=== PATIENT | male | born 1945 | race Caucasian/White ===

== ENCOUNTER 2017-04-02 09:55 | Outpatient (CLI) | payer MEDICARE, OTHER ==
[~2017-04-02] VITALS: Ht 172.7 cm; Wt 75.3 kg
[~2017-04-02 09:55] MED LIST: TRAMADOL HCL50 MG ORAL
[2017-04-02 10:15] VITALS: BP 118/76
[2017-04-02] MEDS ORDERED: BP MED PO (10:17)
--- NOTE | 2017-04-02 10:59 | GI Initial Consult Note ---
Stephanie Frias N.P. 04/02/17 1059: History of Present Illness General Date patient seen: Apr 02, 2017 Time patient seen: 10:49 Referring physician: Reason for Consultation: SCREENING COLONOSCOPY Present Illness HPI 71 year old male here to schedule routine EGD/colonoscopy. He presents today with no GI symptoms. Denies any weight loss or changes in dietary habits. Home Meds Reported Medications [Bp Med ] No Conflict Check, PO DAILY 04/02/17 Discontinued Scripts Tramadol Hcl* (ULTRAM*) 50 Mg Tablet, 50 MG ORAL Q6H Y for For Pain, #15 TAB 0 Refills Prov:ALISA TIRADO 08/07/15 Med list reviewed/reconciled: Yes Allergies: Coded Allergies: No Known Allergies (Unverified , 08/07/15) Patient History History Provided By: Patient PMH Narrative HTN Past Surgical History: none Pertinent Family History: HTN Social History: Denies: smoking, alcohol use, drug use, other Review of Systems All Other Systems: negative except mentioned in HPI Physical Exam Vital Signs Date Time Temp Pulse Resp B/P (MAP) Pulse Ox O2 Delivery O2 Flow Rate FiO2 04/02/17 10:15 97.5 45 16 118/76 98 Sp02 EP Interpretation: reviewed General Appearance: well appearing, no apparent distress, alert Head: normocephalic EENT: PERRL/EOMI, normal ENT inspection Neck: full range of motion, supple Respiratory: normal breath sounds, no respiratory distress Cardiovascular: normal rate Gastrointestinal: normal inspection, non tender, soft, normal bowel sounds Rectal: deferred Genitourinary: no CVA tenderness Musculoskeletal: normal inspection, back normal Neurologic: normal inspection, alert, oriented x3, responsive Psychiatric: normal inspection, judgement/insight normal, memory normal Skin: normal inspection, normal color, no rash, warm/dry, palpation normal Lymphatic: normal inspection GI: Plan Problems: (1) HTN (hypertension) (2) Colonoscopy planned (3) Bradycardia Plan EGD/colonoscopy schedule 04/05/17. - CLD & prep instructions given to patient. bradycardia >> pt states he exercises and lifts weights daily Seen with Dr. Irvin. BENJAMIN IRVIN 04/03/17 1205: History of Present Illness Present Illness Home Meds Reported Medications [Bp Med ] No Conflict Check, PO DAILY 04/02/17 Discontinued Scripts Tramadol Hcl* (ULTRAM*) 50 Mg Tablet, 50 MG ORAL Q6H Y for For Pain, #15 TAB 0 Refills Prov:ALISA TIRADO 08/07/15 Allergies: Coded Allergies: No Known Allergies (Unverified , 08/07/15) GI: Plan Plan The patient was seen and examined at bedside and all new and available data was reviewed in the patients chart. I agree with the above findings, impression and plan. (Patient seen earlier today. Signature stamp does not reflect patient encounter time.). -Mary Alvarez MDh Arias Levy Apr 02, 2017 10:59 BENJAMIN IRVIN Apr 03, 2017 12:05
== END 2017-04-02 10:45 | disposition home or self-care (01) ==
LOC: PAN 09:55
DX: I10 Essential (primary) hypertension (principal); R00.1 Bradycardia, unspecified
CPT/HCPCS: 99201

== ENCOUNTER 2017-04-05 06:23 | Day surgery (SDC) | payer MEDICARE, OTHER ==
[2017-04-05] VITALS (11 sets, daily range): BP systolic 110–133; BP diastolic 73–86
[~2017-04-05] VITALS: Ht 172.7 cm; Wt 74.8 kg
[~2017-04-05 06:23] MED LIST changes: +BP MED PO
--- NOTE | 2017-04-05 06:47 | Anethesia Preoperative Eval ---
Anesthesia Pre-op PMH/ROS General Date of Evaluation: Apr 05, 2017 Time of Evaluation: 06:42 Anesthesiologist: danielle ASA Score: ASA 2 Mallampati Score Class I : Soft palate, uvula, fauces, pillars visible Class II: Soft palate, uvula, fauces visible Class III: Soft palate, base of uvula visible Class IV: Only hard plate visible Mallampati Classification: Class II Surgeon: lilliana Diagnosis: gerd, colonoscopy Surgical Procedure: egd/colonoscopy Anesthesia History: none Social History: smoking - nonsmoker Family History: no anesthesia problems Allergies: Coded Allergies: No Known Allergies (Unverified , 08/07/15) Medications: see eMAR Past Medical History Cardiovascular: Reports: HTN, arrhythmia - bradycardia Anesthesia Pre-op Phys. Exam Physician Exam Last Vital Signs Date Time Temp Pulse Resp B/P (MAP) Pulse Ox O2 Delivery O2 Flow Rate FiO2 04/05/17 06:52 97.0 52 20 110/75 97 Room Air Constitutional: NAD Neurologic: CN 2-12 intact Cardiovascular: RRR Respiratory: CTA Gastrointestinal: S/NT/ND Airway Exam Mallampati Score: Class II MO: full Neck: supple TMD: 2fb ROM: full Teeth: intact Anesthesia Pre-op A/P Labs hemolyzed sample. Labs Test 04/05/17 06:50 White Blood Count 5.7 K/UL (4.8-10.8) Red Blood Count 4.01 M/UL (4.70-6.10) Hemoglobin 13.1 G/DL (14.2-18.0) Hematocrit 39.9 % (42.0-52.0) Mean Corpuscular Volume 100 FL (80-99) Mean Corpuscular Hemoglobin 32.7 PG (27.0-31.0) Mean Corpuscular Hemoglobin Concent 32.9 G/DL (32.0-36.0) Red Cell Distribution Width 11.8 % (11.6-14.8) Platelet Count 165 K/UL (150-450) Mean Platelet Volume 7.6 FL (6.5-10.1) Neutrophils (%) (Auto) 55.0 % (45.0-75.0) Lymphocytes (%) (Auto) 31.0 % (20.0-45.0) Monocytes (%) (Auto) 8.5 % (1.0-10.0) Eosinophils (%) (Auto) 4.2 % (0.0-3.0) Basophils (%) (Auto) 1.2 % (0.0-2.0) Sodium Level 142 mEQ/L (135-145) Potassium Level 6.1 mEQ/L (3.4-4.9) Chloride Level 106 mEQ/L (98-107) Carbon Dioxide Level 24 mEQ/L (20-30) Anion Gap 12 (5-15) Blood Urea Nitrogen 19 mg/dL (7-23) Creatinine 1.4 mg/dL (0.7-1.2) Estimat Glomerular Filtration Rate mL/min (>60) Glucose Level 94 mg/dL (74-106) Calcium Level 9.5 mg/dL (8.6-10.2) Studies Pre-op Studies: EKG - sinus bradycardia Risk Assessment & Plan Assessment: asa2 Plan: mac Status Change Before Surgery: No Pre-Antibiotics Drug: VALENTIN Hays Apr 05, 2017 06:47
[2017-04-05 07:09] LABS: BASOPHILS % (AUTO) 1.2 % (0.0-2.0); EOSINOPHILS % (AUTO) 4.2 % (0.0-3.0); MEAN CORPUSCULAR HEMOGLOBIN 32.7 PG (27.0-31.0); MEAN CORPUSCULAR HGB CONC 32.9 G/DL (32.0-36.0); MEAN CORPUSCULAR VOLUME 100 FL (80-99); MEAN PLATELET VOLUME 7.6 FL (6.5-10.1); MONOCYTES % (AUTO) 8.5 % (1.0-10.0); PLATELET COUNT 165 K/UL (150-450); RED BLOOD COUNT 4.01 M/UL (4.70-6.10); RED CELL DISTRIBUTION WIDTH 11.8 % (11.6-14.8); WHITE BLOOD COUNT 5.7 K/UL (4.8-10.8)
[2017-04-05 07:21] LABS: ANION GAP 12 (5-15); CALCIUM 9.5 mg/dL (8.6-10.2); CARBON DIOXIDE 24 mEQ/L (20-30); CHLORIDE 106 mEQ/L (98-107); CREATININE 1.4 mg/dL (0.7-1.2); HEMOLYSIS 227; SODIUM 142 mEQ/L (135-145)
[2017-04-05 07:22] LABS: POTASSIUM 6.1 mEQ/L (3.4-4.9)
[2017-04-05] MEDS ORDERED: Lidocaine 1% MPF 10mg/ml 5ml ONE (07:30)
[2017-04-05] MEDS ORDERED: Propofol 200mg/20ml IV ONE (07:30)
--- NOTE | 2017-04-05 07:45 | Short Stay Surgery H&P ---
History of Present Illness History of Present Illness Chief Complaint see recent consult HPI Tanmay Rush is a 71 year old male who was admitted on for Gerd,Colon Screening Patient History Allergies: Coded Allergies: No Known Allergies (Unverified , 08/07/15) PAST MEDICAL HISTORY: Past Surgeries: Social History: Medication History Scheduled [Bp Med ], PO DAILY, (Reported) Discontinued Medications Tramadol Hcl* (Ultram*), 50 MG ORAL Q6H PRN for For Pain Discontinued Reason: MD discontinued med Physical Exam Vital Signs Last Vital Signs Date Time Temp Pulse Resp B/P (MAP) Pulse Ox O2 Delivery O2 Flow Rate FiO2 04/05/17 06:52 97.0 52 20 110/75 97 Room Air Labs Laboratory Tests Test 04/05/17 06:50 White Blood Count 5.7 K/UL (4.8-10.8) Red Blood Count 4.01 M/UL (4.70-6.10) L Hemoglobin 13.1 G/DL (14.2-18.0) L Hematocrit 39.9 % (42.0-52.0) L Mean Corpuscular Volume 100 FL (80-99) H Mean Corpuscular Hemoglobin 32.7 PG (27.0-31.0) H Mean Corpuscular Hemoglobin Concent 32.9 G/DL (32.0-36.0) Red Cell Distribution Width 11.8 % (11.6-14.8) Platelet Count 165 K/UL (150-450) Mean Platelet Volume 7.6 FL (6.5-10.1) Neutrophils (%) (Auto) 55.0 % (45.0-75.0) Lymphocytes (%) (Auto) 31.0 % (20.0-45.0) Monocytes (%) (Auto) 8.5 % (1.0-10.0) Eosinophils (%) (Auto) 4.2 % (0.0-3.0) H Basophils (%) (Auto) 1.2 % (0.0-2.0) Sodium Level 142 mEQ/L (135-145) Potassium Level 6.1 mEQ/L (3.4-4.9) *H Chloride Level 106 mEQ/L (98-107) Carbon Dioxide Level 24 mEQ/L (20-30) Anion Gap 12 (5-15) Blood Urea Nitrogen 19 mg/dL (7-23) Creatinine 1.4 mg/dL (0.7-1.2) H Estimat Glomerular Filtration Rate mL/min (>60) Glucose Level 94 mg/dL (74-106) Calcium Level 9.5 mg/dL (8.6-10.2) Plan Attestation Are the patient's medical conditions optimized for surgery? BENJAMIN IRVIN Apr 05, 2017 07:45
--- NOTE | 2017-04-05 07:45 | Pre-Procedure Note/Attestation ---
Pre-Procedure Note/Attestation Complete Prior to Procedure Planned Procedure: not applicable Procedure Narrative: EGD and colonoscopy Indications for Procedure Pre-Operative Diagnosis: screening colon ,GERD Attestation I attest that I discussed the nature of the procedure; its benefits; risks and complications; and alternatives (and the risks and benefits of such alternatives ), prior to the procedure, with the patient (or the patient's legal independent sales representative). I attest that, if there was a reasonable possibility of needing a blood transfusion, the patient (or the patient's legal independent sales representative) was given the [facility] standardized written summary, pursuant to the Justino Lynda Blood Safety Act ([place] Health and Safety Code # 1645, as amended). I attest that I re-evaluated the patient just prior to the surgery and that there has been no change in the patient's H&P, except as documented below: BENJAMIN IRVIN Apr 05, 2017 07:45
[2017-04-05] MEDS ORDERED: Hydromorphone 0.5mg/0.5ml inj IVP PRN (08:15)
[2017-04-05] MEDS ORDERED: Atropine Inj 1mg/10ml Syr IV PRN (08:15)
[2017-04-05] MEDS ORDERED: Midazolam 2mg/2ml Inj IVP PRN (08:15)
[2017-04-05] MEDS ORDERED: DiphenhydrAMINE 50mg/ml Inj IVP PRN (08:15)
--- NOTE | 2017-04-05 08:21 | Endoscopy Procedure Note ---
Endoscopy Procedure Note Indication for Procedure: screening colon, GERD Procedures Performed: EGD, colonoscopy Operative Findings/Diagnosis: 3 colon polyps, gastritis Specimen: yes Pt Tolerated Procedure Well: Yes Estimated Blood Loss: none Anesthesiologist: danielle Anesthesia: MAC Implant(s) used?: No 50 yrs or older w/o bx or poly: No 10yrs. F/U not recommended: Yes If not recommended, why?: Above average risk 10 yrs. F/U needed: Yes 18 years or older w/prev. colo: No BENJAMIN IRVIN Apr 05, 2017 08:21
--- NOTE | 2017-04-05 08:43 | Immediate Post-Op Evaluation ---
Immediate Post-Op Evalulation Immediate Post-Op Evalulation Procedure: egd/colonocopy Date of Evaluation: Apr 05, 2017 Time of Evaluation: 08:37 IV Fluids: 400ml 0.9ns Blood Products: none Estimated Blood Loss: negligible Blood Pressure Systolic: 123 Blood Pressure Diastolic: 73 Pulse Rate: 55 Respiratory Rate: 18 O2 Sat by Pulse Oximetry: 100 Temperature (Fahrenheit): 97.4 Pain Score (1-10): 0 Nausea: No Vomiting: No Complications none Patient Status: awake, reacts, patent Hydration Status: adequate Drug: VALENTIN Hays Apr 05, 2017 08:42
--- NOTE | 2017-04-05 08:44 | 48 Hour Post Anesthesia Eval ---
Post Anesthesia Evaluation Procedure: egd/colonocopy Date of Evaluation: Apr 05, 2017 Time of Evaluation: 08:43 Blood Pressure Systolic: 125 0: 74 Pulse Rate: 56 Respiratory Rate: 18 Temperature (Fahrenheit): 97.4 O2 Sat by Pulse Oximetry: 100 Airway: patent Nausea: No Vomiting: No Pain Intensity: 0 Hydration Status: adequate Cardiopulmonary Status: stable Mental Status/LOC: patient returned to baseline Post-Anesthesia Complications: none Follow-up care needed: N/A VALENTIN PITT Apr 05, 2017 08:44
--- NOTE | 2017-04-05 16:15 | Procedure Note ---
DATE OF PROCEDURE: 04/05/2017 SURGEON: Yon Whiteside M.D. PROCEDURE: Upper endoscopy with biopsy and colonoscopy with biopsy. ANESTHESIOLOGIST: Anastasia Hays M.D. INSTRUMENT: Olympus adult flexible upper endoscope and colonoscope. INDICATION: 1. Screening colonoscopy evaluation. 2. Chronic acid reflux disease. REASON FOR PROCEDURE: The procedure, risks, benefits, and possible consequences, including hemorrhage, aspiration, perforation and infection, and alternative treatments, were explained to the patient/legal guardian by Dr. Yon Whiteside and the patient/legal guardian understood and accepted these risks. DESCRIPTION OF PROCEDURE: After informed consent was obtained and the patient was adequately sedated, Olympus upper endoscope was advanced from mouth into the second portion of the duodenum and retroflexion was performed of the stomach. The patient had some distal esophageal wall changes. The lining of the mucosa was a little bit thickened and color was more white than usual, so we did a biopsy from this area. Otherwise, no masses were seen. In the stomach, there was diffuse gastritis. Random biopsy from antrum was obtained to rule out H. pylori infection. Also the patient had multiple erosions in the antrum of the stomach. The duodenal mucosa grossly looked within normal limits. At this time, the upper endoscope was retrieved and the patient was turned over for colonoscopy. First, a rectal exam was performed, which was normal. Then, the scope was advanced from the rectum into the cecum documented by appendiceal orifice, ileocecal valve, and upper quadrant palpation. Quality of prep was good. The patient had severe melanosis coli, especially in the right colon. Random biopsy from cecum was obtained to document. The patient had a total of 3 polyps in this examination, two in the transverse colon and one in the rectum. The two in the transverse colon were diminutive and were removed with the cold biopsy forceps technique, the one in the rectum measured roughly about 4 mm which was removed with biopsy forceps technique. Retroflexion of rectum showed evidence of medium-sized nonbleeding internal hemorrhoids. SUMMARY OF FINDINGS: 1. Distal esophageal wall thickening, nonspecific status post biopsy. 2. Diffuse gastritis, status post biopsy. 3. Multiple antral erosions. 4. Three colonic polyps removed, see above for details. 5. Severe melanosis coli. 6. Medium-sized internal hemorrhoids. RECOMMENDATIONS: 1. Followup biopsy results and treat accordingly. 2. The patient will need a repeat colonoscopy in three years given three polyps. 3. We will recommend the patient to avoid laxatives as it causes melanosis coli. I want to thank, Dr. Yon Addison, for this kind referral. Yon Whiteside M.D. DR: LIONEL JOB#: [id number] CC: Yon Addison M.D.; Fax#: [phone]
--- NOTE | 2017-04-09 18:00 | Cardiology Report ---
APPROVED REPORT EKG Measurement Heart [id number] NM [id number] Sinus bradycardia Otherwise normal ECG
== END 2017-04-05 09:25 | disposition home or self-care (01) ==
LOC: GAS 06:23
DX: Z12.11 Encounter for screening for malignant neoplasm of colon (principal); K63.89 Other specified diseases of intestine; K62.1 Rectal polyp; D12.3 Benign neoplasm of transverse colon; K64.8 Other hemorrhoids; K21.9 Gastro-esophageal reflux disease without esophagitis; K29.70 Gastritis, unspecified, without bleeding; K25.9 Gastric ulcer, unspecified as acute or chronic, without hemorrhage or perforation; K22.9 Disease of esophagus, unspecified; I10 Essential (primary) hypertension; R00.1 Bradycardia, unspecified
CPT/HCPCS: 36415; 43239; 45380; 80048; 85025; 93005; J2704; 94003; 94150

== ENCOUNTER 2017-04-15 13:24 | Outpatient (CLI) | payer MEDICARE, OTHER ==
--- NOTE | 2017-04-15 15:01 | GI Progress Note ---
Assessment/Plan Problems: (1) Helicobacter pylori (H. pylori) ICD Codes: A04.8 - Other specified bacterial intestinal infections SNOMED: 658725521 (2) Colonic polyp ICD Codes: K63.5 - Polyp of colon SNOMED: 41261883 Status: stable Status Narrative Discussed with Dr. Whiteside. Assessment/Plan SUMMARY OF FINDINGS reviewed with patient: 1. Distal esophageal wall thickening, nonspecific status post biopsy. 2. Diffuse gastritis, status post biopsy. 3. Multiple antral erosions. 4. Three colonic polyps removed, see above for details. 5. Severe melanosis coli. 6. Medium-sized internal hemorrhoids. RECOMMENDATIONS: 1. Followup biopsy results and treat accordingly. >> H. Pylori positive >> Tx given, RTC x 3 month for retest 2. The patient will need a repeat colonoscopy in five years given three polyps. 3. We will recommend the patient to avoid laxatives as it causes melanosis coli. Subjective Gastrointestinal/Abdominal: Reports: no symptoms Objective T 98.2 BP 110/61 P 52 99 RA denies weight loss General Appearance: no apparent distress, alert, overweight Cardiovascular: normal rate Respiratory/Chest: normal breath sounds, no respiratory distress Abdominal Exam: normal bowel sounds, non tender, soft Extremities: normal range of motion Stephanie Frias N.P. Apr 15, 2017 15:00
[2017-04-15 15:11] VITALS: BP 110/60
== END 2017-04-15 14:00 | disposition home or self-care (01) ==
LOC: PAN 13:24
DX: K63.5 Polyp of colon (principal); A04.8 Other specified bacterial intestinal infections; K29.70 Gastritis, unspecified, without bleeding; K64.8 Other hemorrhoids
CPT/HCPCS: 99211

== ENCOUNTER 2018-05-17 21:35 | Emergency (ER) | payer MEDICARE, OTHER ==
[~2018-05-17] VITALS: Ht 165.1 cm; Wt 77.1 kg
[2018-05-17 21:40] VITALS: BP 118/69
--- NOTE | 2018-05-17 21:50 | Emergency Room Report ---
History of Present Illness General Chief Complaint: Upper Extremity Injury Source: Patient Present Illness HPI Is a 72-year-old male who is right-hand dominant. He presents with chief complaint of right arm pain. He said yesterday helping someone carry a refrigerator and they fell in the refrigerator landed on his right elbow and arm area. Complaining of pain to that area. Pain is 9 out of 10. Worse with movement. He's been taking ibuprofen without much relief. No head injury. No other injury. Nobody injury. Allergies: Coded Allergies: No Known Allergies (Unverified , 08/07/15) Patient History Past Medical History: see triage record, old chart reviewed, HTN, CAD Past Surgical History: other Pertinent Family History: none Social History: Denies: smoking Immunizations: other Reviewed Nursing Documentation: PMH: Agreed; PSxH: Agreed Nursing Documentation-PMH Hx Cardiac Problems: Yes Hx Hypertension: Yes Hx Cancer: No Hx Gastrointestinal Problems: Yes Hx Neurological Problems: No Review of Systems Eye: Denies: eye pain, blurred vision ENT: Denies: ear pain, nose congestion, throat swelling Respiratory: Denies: cough, shortness of breath Cardiovascular: Denies: chest pain, palpitations Gastrointestinal: Denies: abdominal pain, diarrhea, nausea, vomiting Musculoskeletal: Reports: joint pain; Denies: back pain Skin: Denies: rash Neurological: Denies: headache, numbness Endocrine: Denies: increased thirst, increased urine Hematologic/Lymphatic: Denies: easy bruising All Other Systems: negative except mentioned in HPI Physical Exam Vital Signs Date Time Temp Pulse Resp B/P (MAP) Pulse Ox O2 Delivery O2 Flow Rate FiO2 05/17/18 21:37 98.1 60 18 118/69 91 Room Air 98.1 vitals normal. Repeat oxygenation is 98% Sp02 EP Interpretation: reviewed, normal General Appearance: well appearing, no apparent distress, alert Head: normocephalic, atraumatic Eyes: bilateral eye PERRL, bilateral eye EOMI ENT: hearing grossly normal, normal pharynx Neck: full range of motion, supple, no meningismus Respiratory: chest non-tender, lungs clear, normal breath sounds Cardiovascular #1: regular rate, rhythm, no murmur Gastrointestinal: normal bowel sounds, non tender, no mass, no organomegaly, no bruit, non-distended Musculoskeletal: back normal, gait/station normal, other - Right elbow: Tenderness to the proximal forearm/elbow. Decreased range of motion. Psychiatric: mood/affect normal Skin: warm/dry Procedures Splinting Splinting : Consent: Verbal Location: right elbow Pre-Made Type: sling Pre-Proc Neuro Vasc Exam: normal Post-Proc Neuro Vasc Exam: normal Patient Tolerated: Well Complications: None Medical Decision Making Diagnostic Impression: Primary Impression: Avulsion fracture of lateral epicondyle of humerus Qualified Codes: S42.434A - Nondisplaced fracture (avulsion) of lateral epicondyle of right humerus, initial encounter for closed fracture ER Course Patient with a small avulsion fracture of the lateral condyle the right humerus. No evidence of any dislocation. Patient placed in a sling. Does not want narcotic. We'll discharge home. Other X-Ray Diagnostic Results Other X-Ray Diagnostic Results : X-Ray ordered: right elbow x-rays # of Views/Limited Vs Complete: 4 View Indication: Pain EP Interpretation: Yes Interpretation: no dislocation, no soft tissue swelling, other - avulsion frx of lateral epicondyle Impression: Other - avulsion frx of lateral epicondyle Electronically Signed by: Rolando Frias MD Last Vital Signs Date Time Temp Pulse Resp B/P (MAP) Pulse Ox O2 Delivery O2 Flow Rate FiO2 05/17/18 21:37 98.1 60 18 118/69 91 Room Air 98.1 Status: improved Disposition: HOME, SELF-CARE Condition: Stable Scripts Ibuprofen* (MOTRIN*) 600 Mg Tablet 600 MG ORAL THREE TIMES A DAY, #30 TAB 0 Refills Prov: Rolando Frias MD 05/17/18 Additional Instructions: Wear sling. Elevate arm. Ice pack to the area. Follow-up your doctor in 7 days. Return if worse. May need MRI if not better. Rolando Frias MD May 17, 2018 21:50
[2018-05-17] MEDS ORDERED: Norco 5mg/325mg tab ORAL ONE (22:00)
[2018-05-17] MEDS ORDERED: IBUPROFEN600 MG ORAL (22:16)
[2018-05-17 22:22] VITALS: BP 118/69
--- NOTE | 2018-05-17 22:33 | Diagnostic Imaging Report ---
EXAM: XR Right Elbow Complete, 3 or More Views CLINICAL HISTORY: TRAUMA TECHNIQUE: Frontal, lateral and oblique views of the right elbow. COMPARISON: No relevant prior studies available. FINDINGS: Bones/joints: Irregularity noted about the lateral humeral condyle with tiny ossifications likely representing remote trauma and/or degenerative changes of the radial collateral ligament. No acute fracture or malalignment. Soft tissues: Unremarkable. IMPRESSION: Irregularity noted about the lateral humeral condyle with tiny ossifications likely representing remote trauma and/or degenerative changes of the radial collateral ligament. No acute fracture or malalignment.
== END 2018-05-17 22:40 | disposition home or self-care (01) ==
LOC: EMR 22:39
DX: S42.434A Nondisplaced fracture (avulsion) of lateral epicondyle of right humerus, initial encounter for closed fracture (principal); M25.521 Pain in right elbow; W22.09XA Striking against other stationary object, initial encounter; Y93.89 Activity, other specified; Y92.9 Unspecified place or not applicable; Y99.9 Unspecified external cause status
CPT/HCPCS: 99283

== ENCOUNTER 2019-06-30 08:54 | Outpatient (CLI) | payer MEDICARE, OTHER ==
[~2019-06-30 08:54] MED LIST changes: +IBUPROFEN600 MG ORAL
[2019-06-30 09:11] VITALS: BP 118/85
--- NOTE | 2019-07-01 10:01 | General Progress Note ---
Assessment/Plan Assessment/Plan: Assessment/Plan Problems: (1) Helicobacter pylori (H. pylori) ICD Codes: A04.8 - Other specified bacterial intestinal infections SNOMED: 104427211 (2) Colonic polyp (3) constipation ICD Codes: K63.5 - Polyp of colon Assessment/Plan SUMMARY OF FINDINGS reviewed with patient: 1. Distal esophageal wall thickening, nonspecific status post biopsy. 2. Diffuse gastritis, status post biopsy. 3. Multiple antral erosions. 4. Three colonic polyps removed, see above for details. 5. Severe melanosis coli. 6. Medium-sized internal hemorrhoids. RECOMMENDATIONS: linzess 290 repeat colonoscopy in 04/19 Subjective ROS Limited/Unobtainable: Yes Allergies: Coded Allergies: No Known Allergies (Unverified , 08/07/15) Objective General Appearance: alert EENT: normal ENT inspection Neck: supple Cardiovascular: normal rate Respiratory/Chest: decreased breath sounds Abdomen: normal bowel sounds, non tender, soft Extremities: non-tender Yon Whiteside MD Jul 01, 2019 10:01
== END 2019-06-30 10:54 | disposition home or self-care (01) ==
LOC: PAN 08:54
DX: K63.5 Polyp of colon (principal); K59.00 Constipation, unspecified; A04.8 Other specified bacterial intestinal infections; K29.70 Gastritis, unspecified, without bleeding; K64.8 Other hemorrhoids